=== PATIENT | female | born 1990 | race African-American/Black ===

== ENCOUNTER 2019-11-03 19:45 | Emergency (ER) | payer BC, SELFPAY | END 2019-11-03 21:15 | disposition home or self-care (01) | LOC: ERS 19:45 | DX: J04.0 Acute laryngitis (principal); J02.9 Acute pharyngitis, unspecified | CPT/HCPCS: 99283 ==

== ENCOUNTER 2025-06-23 01:17 | Emergency (ER) | payer SELFPAY ==
[2025-06-23] MEDS ORDERED: Ondansetron PF 4 MG/2 ML Vial ONE (01:31)
[2025-06-23 02:01] LABS: #Basophils 0.04 10x3/uL (0.0-0.2); #Eosinophils 0.03 10x3/uL (0.0-0.7); #Monocytes 0.44 10x3/uL (0.11-0.59); #Neutrophils 4.89 10x3/uL (1.40-6.50); %Basophils 0.4 % (0.0-1.0); %Eosinophils 0.3 % (0.0-10.0); %Lymphocytes 40.5 % (21.0-51.0); %Monocytes 4.8 % (0.0-10.0); %Neutrophils 53.7 % (42.0-75.0); Hematocrit 39.6 % (36.0-47.0); Hemoglobin 12.8 g/dL (12.0-16.0); Mean Corpuscular Hemoglobin 26.2 pg (27.0-31.0); Mean Corpuscular Volume 81.1 fL (78.0-98.0); Platelet Count 307 10x3/uL (130-400); Red Blood Cell (RBC) Count 4.88 mill/uL (4.20-5.40); White Blood Cell (WBC) Count 9.13 10x3/uL (4.8-10.8)
[2025-06-23 02:14] LABS: ALT (SGPT) 13 U/L (Less than 34); AST (SGOT) 25 U/L (11-34); Albumin 4.5 g/dL (3.1-4.5); Alkaline Phosphatase 60 U/L (40-110); Anion Gap 17 mmol/L (10-20); BUN (Urea Nitrogen) 5 mg/dL (7.0-18.7); Bilirubin, Total 1.0 mg/dL (0.3-1.2); Calc. Creatinine Clearance 0 mL/min (70-130); Calcium 8.9 mg/dL (7.8-10.44); Carbon Dioxide 18 mmol/L (22-29); Chloride 108 mmol/L (98-107); Globulin 2.9 g/dL (2.4-3.5); Glucose 128 mg/dL (70-105); Potassium 2.9 mmol/L (3.5-5.1); Sodium 140 mmol/L (136-145)
[2025-06-23 02:15] LABS: Acetaminophen Less than 10 mcg/mL (Less than 10); Salicylate Less than 8.0 mg/dL (Less than 8.0)
[2025-06-23] MEDS ORDERED: Potassium Bicarbonate/Cit Ac 20 MEQ TAB ONE (02:44)
== END 2025-06-23 05:25 | disposition home or self-care (01) ==
LOC: ERS 01:17
DX: F10.129 Alcohol abuse with intoxication, unspecified (principal); E87.6 Hypokalemia; Y90.7 Blood alcohol level of 200-239 mg/100 ml
CPT/HCPCS: 80053; 80307; 85025; J2405